=== PATIENT | male | born 2000 ===

== ENCOUNTER 2021-01-24 14:38 | Emergency (ER) | payer SELFPAY ==
[2021-01-24] VITALS (8 sets, daily range): BP systolic 128–147; BP diastolic 73–95; PULSE 68–92; RESP 12–18; TEMP 36.9; O2SAT 93–99; BMI 26.6
--- NOTE | 2021-01-24 14:46 | XRR_ITS ---
PROCEDURE INFORMATION: Exam: XR Left Shoulder Exam date and time: 01/24/2021 2:46 PM Age: 20 years old Clinical indication: Injury or trauma; Fall; Dislocation; Shoulder; Left TECHNIQUE: Imaging protocol: XR Left shoulder. Views: 2 or more views. COMPARISON: No relevant prior studies available. FINDINGS: Bones/joints: Anterior dislocation of the left shoulder. The osseous structures of the left shoulder are intact. Soft tissues: Normal. XR/XR shoulder LT min 2V* [id number] IMPRESSION: Anterior dislocation of the left shoulder.
--- NOTE | 2021-01-24 14:47 | XRR_ITS ---
PROCEDURE INFORMATION: Exam: XR Left Shoulder Exam date and time: 01/24/2021 2:47 PM Age: 20 years old Clinical indication: Injury or trauma; Fall; Dislocation; Shoulder; Left; Injury details: Post reduction; Additional info: Post reduciton TECHNIQUE: Imaging protocol: XR Left shoulder. Views: 2 or more views. COMPARISON: CR XR shoulder LT min 2V* [id number] 01/24/2021 2:34 PM FINDINGS: Bones/joints: Postreduction radiographs of the left shoulder demonstrate relocation of the humeral head in the glenohumeral joint space. No evidence of fracture. Soft tissues: Normal. XR/XR shoulder LT min 2V* [id number] IMPRESSION: Relocation of the humeral head in the glenohumeral joint space. No evidence of fracture.
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
[2021-01-24] MEDS: fentaNYL 50 mcg/mL INJ 2mL IVP ×2 (14:53→15:05)
[2021-01-24] MEDS: midazolam 1 mg/mL INJ 2 mL 3 MG IVP (15:05)
--- NOTE | 2021-01-24 15:25 | PC.NURSE ---
Conscious Sedation Assessment: 1453: This RN, RT, [place] RN, and Dr. Dixon at bedside for conscious sedation. Informed consent reviewed with, and signed by patient. 1455: Time Out performed. 1457: 10mg Etomidate administered. 1459: Minimal response to medications, pt still tense and arouses easily. 1500: Additional 10mg Etomidate administered. 1503: Pt still tense, breathing even and unlabored, vss, unable to reduce shoulder after multiple attempts. 1505: 3mg Midazolam and 50mcg Fentanyl administered 1507: L-shoulder successfully reduced. 1509: Shoulder immobilizer applied by this RN and Dr. Dixon. 1510: X-ray in room for verification X-ray. No other interventions necessary. Pt taken off of O2, airway self-maintained. 1515: Pt resting quietly with eyes closed, no needs identified at this time.
== END 2021-01-24 17:01 | disposition home or self-care (01) ==
PROVIDERS: Emergency Provider Family Medicine
DX: M24.412 Recurrent dislocation, left shoulder (principal)
CPT/HCPCS: 23650; 73030; 99284; J2250; J3010; J3490